=== PATIENT | male | born 1995 | race Asian ===

== ENCOUNTER 2017-12-08 19:58 | Emergency (ER) | payer OTHER ==
[2017-12-09] MEDS: NAPROXEN 250 MG TAB PO (04:30)
[2017-12-09] MEDS: traMADol 50 MG TAB PO (04:30)
[2017-12-09] MEDS: CYCLOBENZAPRINE 10 MG TAB PO (04:30)
== END 2017-12-09 05:31 | disposition home or self-care (01) ==
LOC: M ED 19:58
DX: M62.830 Muscle spasm of back (principal)
CPT/HCPCS: 99283

== ENCOUNTER 2018-10-09 12:21 | Day surgery (SDC) | payer OTHER ==
[2018-10-09 12:59] LABS: BASO % 0.3 % (0.0-1.0); EOS # 0.1 10^3/uL (0.0-0.50); EOS % 1.2 % (0.0-3.0); HEMATOCRIT 42.6 % (42.0-52.0); HEMOGLOBIN 14.6 g/dl (13.5-17.5); IMMATURE GRANULOCYTE % 0.4 % (0-3.0); LYMPH # 1.2 10^3/uL (1.5-6.5); LYMPH % 10.3 % (24.0-44.0); MEAN CORPUSCULAR HEMOGLOBIN 28.1 pg (27.0-33.0); MEAN CORPUSCULAR HGB CONC 34.3 g/dl (32.0-36.5); MEAN CORPUSCULAR VOLUME 81.9 fl (80.0-96.0); MONO # 0.7 10^3/uL (0.0-0.8); MONO % 5.6 % (0.0-5.0); NEUTROPHILS # 9.9 10^3/uL (1.8-7.7); NEUTROPHILS % 82.2 % (36.0-66.0); PLATELET COUNT, AUTOMATED 319 10^3/uL (150-450); RED CELL DISTRIBUTION WIDTH 12.4 % (11.5-14.5); WHITE BLOOD COUNT 12.1 10^3/uL (4.0-10.0)
[2018-10-09] MEDS: MORPHINE 4 MG/ML 1ML VIAL/SYRINGE (J2270) IV ×2 (12:59→14:16)
[2018-10-09 13:20] LABS: ANION GAP 11 MEQ/L (8-16); BLOOD UREA NITROGEN 15 MG/DL (7-18); CALCIUM LEVEL 8.9 MG/DL (8.5-10.1); CARBON DIOXIDE LEVEL 25 MEQ/L (21-32); CHLORIDE LEVEL 107 MEQ/L (98-107); CREATININE FOR GFR 1.36 MG/DL (0.70-1.30); GLOMERULAR FILTRATION RATE > 60.0 (>60); GLUCOSE, FASTING 166 MG/DL (70-100); POTASSIUM SERUM 3.9 MEQ/L (3.5-5.1); SODIUM LEVEL 143 MEQ/L (136-145)
[2018-10-09] MEDS ORDERED: LIDOCAINE 1% MDV 20ML VIAL As Ordered (13:43)
[2018-10-09] MEDS: LIDOCAINE 1% MDV 20ML VIAL SC (13:45)
[2018-10-09] MEDS: AMPICILLIN SOD/SULBACTAM SOD 3 GM in D5W MINI-BAG PLUS 100 ML IV (14:29)
[2018-10-09] MEDS ORDERED: PROPOFOL 200 MG/20 ML VIAL (16:06)
[2018-10-09] MEDS ORDERED: METOCLOPRAMIDE INJ 10MG/2ML VIAL (J2765) (16:06)
[2018-10-09] MEDS ORDERED: KETOROLAC 60 MG/2 ML VIAL (J1885) (16:06)
[2018-10-09] MEDS ORDERED: dexameTHASONE 4 MG/ML 1ML VIAL (J1100) (16:06)
[2018-10-09] MEDS ORDERED: LIDOCAINE 2% INJ 100 MG/5 ML SDV (FOR ANES.) (16:06)
[2018-10-09] MEDS ORDERED: MIDAZOLAM INJ 2 MG/2 ML VIAL (J2250) (16:06)
[2018-10-09] MEDS ORDERED: fentaNYL 100 MCG/2 ML INJECTION (J3010) (16:06)
[2018-10-09] MEDS ORDERED: ONDANSETRON 4MG/2ML VIAL (J2405) (16:06)
[2018-10-09] MEDS ORDERED: ceFAZolin 2 GM/D5W 50 ML IV BAG (J0690 PER 500MG) As Ordered (16:35)
[2018-10-09] MEDS: BUPIVACAINE/EPIN 0.5% 30 ML VIAL As Ordered (17:43)
[2018-10-09] MEDS: ceFAZolin 1GM INJ (J0690 PER 500MG) As Ordered (17:59)
[2018-10-09] MEDS ORDERED: ONDANSETRON 4MG/2ML VIAL (J2405) IV ×2 (18:45→19:00)
[2018-10-09] MEDS ORDERED: ACETAMINOPHEN TAB 650MG DOSE (2X325MG) PO (18:45)
[2018-10-09] MEDS ORDERED: PERCOCET 5MG/325MG TAB PO ×2 (18:45)
[2018-10-09] MEDS ORDERED: fentaNYL 100 MCG/2 ML INJECTION (J3010) IV (19:00)
[2018-10-09] MEDS ORDERED: MEPERIDINE INJ 25 MG/ML VIAL (J2175) IV (19:00)
[2018-10-09] MEDS ORDERED: LR 1,000 ML IV (19:00)
[2018-10-09] MEDS ORDERED: METOCLOPRAMIDE INJ 10MG/2ML VIAL (J2765) IV (19:00)
[2018-10-09] MEDS: PERCOCET 5MG/325MG TAB PO (19:30)
[2018-10-09] MEDS: PIPERACILLIN/TAZOBACTAM SOD 3.375 GM in D5W MINI-BAG PLUS 50 ML IV (20:31)
[2018-10-09] MEDS: NAPROXEN 250 MG TAB PO (22:14)
[2018-10-10] MEDS: ceFAZolin SOD 1 GM in D5W MINI-BAG PLUS 50 ML IV ×2 (01:23→09:47)
[2018-10-10] MEDS: PIPERACILLIN/TAZOBACTAM SOD 3.375 GM in D5W MINI-BAG PLUS 50 ML IV ×2 (02:23→08:19)
[2018-10-10] MEDS: NAPROXEN 250 MG TAB PO (08:21)
== END 2018-10-10 12:25 | disposition home or self-care (01) ==
LOC: M SDC 10-10 12:25 → M ED 12:21 → M SDC 16:05 → M PED 19:44
DX: S51.851A Open bite of right forearm, initial encounter (principal); W54.0XXA Bitten by dog, initial encounter; Y92.89 Other specified places as the place of occurrence of the external cause; Y93.89 Activity, other specified; Y99.8 Other external cause status
CPT/HCPCS: 12004

== ENCOUNTER 2018-10-17 12:55 | Emergency (ER) | payer OTHER | END 2018-10-17 13:43 | disposition home or self-care (01) | LOC: M ED 12:55 | DX: Z48.00 Encounter for change or removal of nonsurgical wound dressing (principal) | CPT/HCPCS: 99282 ==

== ENCOUNTER 2019-05-16 09:19 | Emergency (ER) | payer OTHER ==
[~2019-05-16] VITALS: Ht 180.3 cm; Wt 68.6 kg
[~2019-05-16 09:19] MED LIST: AUGM875T28 PO; KEFL500C17 PO; NAPR220C PO; PERC5TAB12 PO
[2019-05-16 09:20] VITALS: BP 168/72
[2019-05-16] MEDS ORDERED: VANI1CRE5 (09:40)
[2019-05-16] MEDS ORDERED: DESO0.0557 (09:40)
[2019-05-16] MEDS ORDERED: TRIA1CR80 (09:40)
[2019-05-16] MEDS ORDERED: CLAR10CA3 PO (09:49)
[2019-05-16] MEDS ORDERED: HYDR1CRE30 TOP (09:49)
[2019-05-16] MEDS ORDERED: CLIN150C14 PO (09:49)
[2019-05-16] MEDS ORDERED: PRED20TA PO (09:49)
== END 2019-05-16 10:06 | disposition home or self-care (01) ==
LOC: M ED 09:19
DX: L08.89 Other specified local infections of the skin and subcutaneous tissue (principal); R21 Rash and other nonspecific skin eruption; Z79.899 Other long term (current) drug therapy

== ENCOUNTER 2019-06-02 11:05 | Emergency (ER) | payer OTHER ==
[~2019-06-02] VITALS: Ht 180.3 cm; Wt 70.5 kg
[~2019-06-02 11:05] MED LIST changes: +CLAR10CA3 PO; +CLIN150C14 PO; +DESO0.0557; +HYDR1CRE30 TOP; +PRED20TA PO; +TRIA1CR80; +VANI1CRE5
[2019-06-02] MEDS ORDERED: SPOR1CAP PO (12:31)
[2019-06-02] MEDS ORDERED: HYDR25OI TOP (12:36)
[2019-06-02 12:38] VITALS: BP 115/56
== END 2019-06-02 12:40 | disposition home or self-care (01) ==
LOC: M ED 11:05
DX: B35.4 Tinea corporis (principal); Z79.899 Other long term (current) drug therapy